=== PATIENT | female | born 1995 | race Two or more races ===

== ENCOUNTER 2023-01-22 18:37 | Emergency (ER) | payer OTHER ==
[~2023-01-22] VITALS: Ht 172.7 cm; Wt 68.0 kg
[2023-01-22 18:42] VITALS: BP 125/93; PULSE 94; RESP 18; TEMP 98.6; O2SAT 100
== END 2023-01-22 21:12 | disposition home or self-care (01) ==
LOC: ER 18:37
DX: I83.92 Asymptomatic varicose veins of left lower extremity (principal)
CPT/HCPCS: 81025; 99282